=== PATIENT | male | born 1970 | race Caucasian/White ===

== ENCOUNTER 2024-03-20 11:50 | Emergency (ER) | payer OTHER ==
--- NOTE | 2024-03-20 13:04 | RAD REPORT ---
EXAMINATION: Elbow Left 3 View CLINICAL INDICATION: Male, 53 years old. PAIN COMPARISON: No prior exam. FINDINGS: No acute fracture. No malalignment/dislocation. No significant focal degenerative change. Other: n/a IMPRESSION: No acute osseous abnormality.
--- NOTE | 2024-03-20 13:05 | RAD REPORT ---
EXAMINATION: Forearm Left CLINICAL INDICATION: Male, 53 years old. PAIN COMPARISON: No prior exam. FINDINGS: No acute fracture. No malalignment/dislocation. No significant focal degenerative change. Other: n/a IMPRESSION: No acute osseous abnormality.
--- NOTE | 2024-03-20 13:14 | ER ---
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 aa5 Coronavirus screen: At this time, the client does not indicate any symptoms associated with coronavirus-19. Ebola Screen: Patient denies travel to an Ebola-affected area in the 21 days before illness onset. Initial Sepsis Screen: Does the patient meet any 2 criteria? HR > 90 bpm. Does the patient have a suspected source of infection? No. Patient's initial sepsis screen is negative. Risk Assessment: Do you want to hurt yourself or someone else? Patient reports no desire to harm self or others. Onset of symptoms was March 20, 2024. 12:09 Acuity: CECILIA 4 aa5 12:09 Method Of Arrival: Ambulatory aa5 Historical: - Allergies: 12:09 No Known Allergies; aa5 - Home Meds: 12:09 None [Active]; aa5 - PMHx: 12:09 None; aa5 - PSHx: 12:09 None; aa5 - Immunization history:: Adult Immunizations unknown. - Infectious Disease History:: Denies. - Social history:: Smoking status: Patient denies any tobacco usage or history of. Screenin:10 [facility] ED Fall Risk Assessment (Adult) History of falling in the last 3 months, aa5 including since admission No falls in past 3 months (0 pts) Confusion or Disorientation No (0 pts) Intoxicated or Sedated No (0 pts) Impaired Gait No (0 pts) Mobility Assist Device Used No (0 pt) Altered Elimination No (0 pt) Score/Fall Risk Level 0 - 2 = Low Risk Oriented to surroundings, Maintained a safe environment, Educated pt \T\ family on fall prevention, incl call for assistance when getting out of bed. Abuse screen: Denies threats or abuse. Nutritional screening: No deficits noted. Tuberculosis screening: No symptoms or risk factors identified. Assessment: 12:10 General: Appears comfortable, Behavior is calm, cooperative. Pain: Complains of pain in aa5 left antecubital area. Neuro: Level of Consciousness is awake, alert, obeys commands, Oriented to person, place, time, situation. Cardiovascular: Patient's skin is warm and dry. Respiratory: Airway is patent Respiratory effort is even, unlabored, Respiratory pattern is regular, symmetrical. GI: No signs and/or symptoms were reported involving the gastrointestinal system. : No signs and/or symptoms were reported regarding the genitourinary system. EENT: No signs and/or symptoms were reported regarding the EENT system. Derm: Skin is pink, warm \T\ dry. Musculoskeletal: Range of motion: intact in all extremities. Vital Signs: 12:09 BP 154 / 102; Pulse 109; Resp 18 S; Temp 97.8(TE); Pulse Ox 98% on R/A; Weight 93.89 kg aa5 (R); Height 5 ft. 9 in. (R); 12:09 Body Mass Index 30.57 (93.89 kg, 175.26 cm) aa5 ED Course: 11:53 Patient arrived in ED. ra3 11:58 Arnulfo Bowen PA is PHCP. cp 11:58 Arnulfo Hilario MD is Attending Physician. cp 12:09 Arm band placed on. aa5 12:09 Patient has correct armband on for positive identification. aa5 12:10 Triage completed. aa5 12:10 Jania Vera, ALEXANDER is Primary Nurse. aa5 13:01 XRAY Elbow LEFT 3 view In Process Unspecified. EDMS 13:01 XRAY Forearm LEFT In Process Unspecified. EDMS 13:13 Heriberto Cade MD is Referral Physician. cp 13:55 No provider procedures requiring assistance completed. IV discontinued, intact, aa5 bleeding controlled, No redness/swelling at site. Pressure dressing applied. Administered Medications: No medications were administered Outcome: 13:14 Discharge ordered by MD. cp 13:55 Patient left the ED. tm6 Signatures: Dispatcher [employer] EDMS Jania Vera, ALEXANDER RN aa5 Arnulfo Bwoen PA PA cp Masterson, Tawney, RN RN tm6 Hannah Myers ra3 Corrections: (The following items were deleted from the chart) 12:10 12:09 Pulse 109bpm; Resp 18bpm; Spontaneous; Pulse Ox 98% RA; Temp 97.8F Temporal; aa5 93.89 kg Reported; Height 5 ft. 9 in. Reported; BMI: 30.5; aa5
--- NOTE | 2024-03-20 13:14 | EDPHYS ---
Physician Documentation [facility] Name: Cristi Ordonez Age: 53 yrs Sex: Male : 1970 Arrival Date: 03/20/2024 Time: 11:50 Bed 10 Private MD: ED Physician Arnulfo Hilario HPI: 03/20 12:10 This 53 yrs old Male presents to ER via Ambulatory with complaints of Arm Injury - Left.cp 12:10 The patient or guardian complains of injury, pain, that is acute. The complaints affect cp the palmar aspect of left forearm. 12:10 Context: pain started after grabbing to restrain large dog. cp 12:10 Onset: The symptoms/episode began/occurred just prior to arrival. Treatment prior to cp arrival includes: no previous treatment. Historical: - Allergies: 12:09 No Known Allergies; aa5 - Home Meds: 12:09 None [Active]; aa5 - PMHx: 12:09 None; aa5 - PSHx: 12:09 None; aa5 - Immunization history:: Adult Immunizations unknown. - Infectious Disease History:: Denies. - Social history:: Smoking status: Patient denies any tobacco usage or history of. ROS: 12:15 Constitutional: Negative for body aches, chills, fever, cp 12:15 Eyes: Negative for injury, pain, redness, and discharge, cp 12:15 Respiratory: Negative for cough, shortness of breath, wheezing, 12:15 MS/extremity: Positive for pain, swelling, tenderness, of the left forearm, Negative for paresthesias, Exam: 12:20 Constitutional: The patient appears in no acute distress, alert, awake, well developed, cp well nourished, 12:20 Head/Face: Normocephalic, atraumatic. cp 12:20 Chest/axilla: Inspection: normal, 12:20 Cardiovascular: Rate: tachycardic, Rhythm: regular, Pulses: Pulses are 2+ in left radial artery. 12:20 Respiratory: the patient does not display signs of respiratory distress, Respirations: normal, no use of accessory muscles, no retractions, labored breathing, is not present, Breath sounds: are clear throughout, no decreased breath sounds, 12:20 Abdomen/GI: Inspection: abdomen appears normal, 12:20 Back: pain, is absent, ROM is normal, 12:20 Musculoskeletal/extremity: Extremities: grossly normal except: noted in the left forearm: pain, tenderness, mild swelling noted volar side proximal left forearm, ROM: limited active range of motion due to pain, in the left elbow, 12:20 Skin: cellulitis, is not appreciated, no rash present. Vital Signs: 12:09 BP 154 / 102; Pulse 109; Resp 18 S; Temp 97.8(TE); Pulse Ox 98% on R/A; Weight 93.89 kg aa5 (R); Height 5 ft. 9 in. (R); 12:09 Body Mass Index 30.57 (93.89 kg, 175.26 cm) aa5 MDM: 12:09 Medical Screening Exam initiated cp 13:00 Differential diagnosis: closed fracture, contusion, torn muscle, muscle strain. cp 13:13 Data reviewed: vital signs, nurses notes, radiologic studies, plain films, and as a cp result, I will discharge patient. 13:13 Counseling: I had a detailed discussion with the patient and/or guardian regarding the cp historical points, exam findings, and any diagnostic results supporting the discharge/admit diagnosis, radiology results, to return to the emergency department if symptoms worsen or persist or if there are any questions or concerns that arise at home. Response to treatment: the patient's symptoms have markedly improved after treatment. 03/20 12:09 Order name: XRAY Elbow LEFT 3 view; Complete Time: 13:17 cp 03/20 13:17 Interpretation: Report reviewed. cp 03/20 12:09 Order name: XRAY Forearm LEFT; Complete Time: 13:17 cp 03/20 12:09 Order name: Sling; Complete Time: 13:55 cp Administered Medications: No medications were administered Disposition Summary: 03/20/24 13:14 Discharge Ordered Notes: Location: Home cp Problem: new cp Symptoms: have improved cp Condition: Stable cp Diagnosis - Pain in left forearm cp Followup: cp - With: Heriberto Cade MD - When: 5 - 6 days - Reason: pain continues Discharge Instructions: - Discharge Summary Sheet cp - Muscle Strain cp - Musculoskeletal Pain cp Forms: - Medication Reconciliation Form cp - Antibiotic Education cp - Prescription Opioid Use cp - Patient Portal Instructions cp - Leadership Thank You Letter cp Prescriptions: - Anaprox DS 550 mg Oral Tablet - take 1 tablet ORAL route every 12 hours As needed; 20 tablet; Refills: 0, cp Product Selection Permitted Signatures: Dispatcher [employer] EDJania Lal RN RN aa5 Arnulfo Bowen PA PA cp Corrections: (The following items were deleted from the chart) 12: 12:09 Elbow Left 3 View+RAD.[email or web address].[email or web address] ordered. EDMS EDMS 12: 12:10 Forearm Left+RAD.RAD.[email or web address] ordered. EDMS EDMS 03/21 09:28 09:27 Context: pain started after grabbing to restrain large dog, cp cp
[2024-03-20 15:43] VITALS: BP 154/102; TEMP 97.8; O2SAT 98
== END 2024-03-20 13:55 | disposition home or self-care (01) ==
LOC: ER 11:50
DX: S59.912A Unspecified injury of left forearm, initial encounter (principal); M79.632 Pain in left forearm; X50.9XXA Other and unspecified overexertion or strenuous movements or postures, initial encounter; Y93.K1 Activity, walking an animal; Y92.9 Unspecified place or not applicable
CPT/HCPCS: 99281